=== PATIENT | male | born 1945 | race Caucasian/White ===

== ENCOUNTER 2018-11-24 01:39 | Outpatient (CLI) | payer MEDICARE ==
[2018-11-24 13:28] LABS: Hemoglobin 18.4 g/dL (14.0-18.0); Mean Corpuscular HGB CONC 31.7 g/dL (32.0-36.0); Mean Corpuscular Hemoglobin 31.5 pg (27.0-31.0); Mean Corpuscular Volume 99.5 fL (78.0-98.0); Mean Platelet Volume 8.2 fL (7.4-10.4); Platelet Count 204 thou/uL (130-400); RBC Distribution Width 12.9 % (11.5-14.5); Red Blood Cell (RBC) Count 5.82 mill/uL (4.70-6.10); White Blood Cell (WBC) Count 10.1 thou/uL (4.8-10.8)
[2018-11-24 13:46] LABS: Anion Gap 15 mmol/L (10-20); BUN (Urea Nitrogen) 37 mg/dL (8.4-25.7); Calc. Creatinine Clearance 0 mL/min (70-130); Calcium 10.1 mg/dL (7.8-10.44); Carbon Dioxide 25 mmol/L (23-31); Chloride 103 mmol/L (98-107); Estimated GFR-MDRD 31; Glucose 89 mg/dL (83-110); Potassium 5.6 mmol/L (3.5-5.1); Sodium 137 mmol/L (136-145)
[2018-11-24 13:49] LABS: Prothrombin Time 13.3 SEC (12.0-14.7)
[2018-11-24 13:50] LABS: PTT 34.6 SEC (22.9-36.1)
== END 2018-11-24 01:40 | disposition home or self-care (01) ==
LOC: LABBT 01:39
PROVIDERS: ATTEND Orthopaedic Surgery
DX: Z01.812 Encounter for preprocedural laboratory examination (principal); M17.11 Unilateral primary osteoarthritis, right knee
CPT/HCPCS: 80048; 85027; 85610; 85730; 86850; 86900; 86901; 87081

== ENCOUNTER 2018-11-24 12:00 | Inpatient (IN) | payer MEDICARE ==
[2018-11-24 12:28] VITALS: BMI 28.1
[2018-12-01] MEDS ORDERED: Fentanyl 100 MCG/2 ML VIAL ONE ×4 (12:28→16:45)
[2018-12-01] MEDS ORDERED: Midazolam HCl 2 mg/2 ml Vial ONE (12:28)
[2018-12-01] MEDS ORDERED: Bupivacaine HCl 0.5%/Epinephrine 1:200,000/PF 30 ml Vial ONE (12:49)
[2018-12-01] MEDS ORDERED: Sodium Chloride 0.9% 0 ML ONE (12:49)
[2018-12-01] MEDS ORDERED: Ketorolac Tromethamine 30 MG/ML VIAL ONE (12:49)
[2018-12-01] MEDS ORDERED: Neomycin-Polymyxin 1 ML AMP ONE (12:49)
[2018-12-01] MEDS ORDERED: Ropivacaine HCl/PF 250 ML in Premix Bag 1 BAG NERVE BLCK SCH (13:20)
[2018-12-01] MEDS ORDERED: Ondansetron PF 4 MG/2 ML Vial IVP PRN ×2 (13:20→15:28)
[2018-12-01] MEDS ORDERED: HYDROcodone/Acetaminophen 10/325 mg Tablet PO PRN (13:20)
[2018-12-01] MEDS ORDERED: Fentanyl 100 MCG/2 ML VIAL SLOW IVP PRN ×2 (13:20→15:28)
[2018-12-01] MEDS ORDERED: traMADol HCl 50 MG TAB PO PRN ×2 (13:20→15:28)
[2018-12-01] MEDS ORDERED: Promethazine HCl 25 MG/ML VIAL IM PRN ×2 (13:20→15:28)
[2018-12-01] MEDS ORDERED: Zolpidem Tartrate 5 MG TAB PO PRN ×2 (13:20→15:28)
[2018-12-01] MEDS ORDERED: Ropivacaine 0.5% HCl/PF (150 MG/30 ML VIAL) ONE ×2 (14:46→16:37)
[2018-12-01] MEDS ORDERED: Ropivacaine 0.2% HCl/PF (40 MG/20 ML VIAL) ONE (14:46)
[2018-12-01] MEDS ORDERED: Lidocaine 1% PF 5 ML VIAL ONE (15:18)
[2018-12-01] MEDS ORDERED: Ondansetron PF 4 MG/2 ML Vial ONE (15:18)
[2018-12-01] MEDS ORDERED: PROPOFOL 200 MG/20 ML VIAL ONE (15:18)
[2018-12-01] MEDS ORDERED: diphenhydrAMINE 25 MG CAP PO PRN (15:28)
[2018-12-01] MEDS ORDERED: Acetaminophen 325 MG TAB PO PRN (15:28)
--- NOTE | 2018-12-01 15:48 | RAD ---
RIGHT KNEE 2 VIEWS: HISTORY: Postop total knee. COMPARISON: None. FINDINGS: Satisfactory appearance of the right total knee arthroplasty and patellar surfacing. Expected postop erative gas and edema. IMPRESSION: Satisfactory postoperative appearance. POS: MARCELLE
[2018-12-01] MEDS: HYDROcodone/Acetaminophen 10/325 mg Tablet PO PRN ×2 (18:40→23:00)
[2018-12-01] MEDS: Dextrose 5 %-0.45 % NaCl 1,000 ML IV SCH (19:34)
[2018-12-01] MEDS: CEFAZOLIN 2 GM in Premix Bag 1 BAG IVPB SCH (19:52)
[2018-12-01] MEDS: traMADol HCl 50 MG TAB PO PRN (19:53)
[2018-12-01] MEDS: Senokot S 8.6-50 MG TAB PO SCH (20:03)
[2018-12-01] MEDS: Tamsulosin HCl 0.4 MG CAP PO SCH (20:03)
[2018-12-01] MEDS: Ferrous Gluconate 324 MG TAB PO SCH (20:03)
[2018-12-01] MEDS: Aspirin 81 mg Enteric Coated Tablet PO SCH (20:03)
[2018-12-01] MEDS: diphenhydrAMINE 25 MG CAP PO SCH (20:04)
--- NOTE | 2018-12-01 22:21 | OP ---
DATE OF PROCEDURE: 12/01/2018 OPERATION: Right total knee arthroplasty. PREOPERATIVE DIAGNOSIS: Right knee osteoarthritis. POSTOPERATIVE DIAGNOSIS: Right knee osteoarthritis. COMPLICATIONS: None. ESTIMATED BLOOD LOSS: 100 mL. ANESTHESIA: General. FORESTRY BIOLOGY SPECIALIST: Jorge Krishnan PA-C IMPLANTS: DJO total knee arthroplasty, size 8 femur, posterior stabilized, size 7 tibia with a 10 mm polyethylene and a 38 mm poly patella. INDICATIONS: Mr. Lemus is a 73-year-old male who has advanced severe osteoarthritis of the knee. He has been indicated for knee arthroplasty to restore function and relieve pain. Risks have been reviewed in detail. He elected to proceed with the operation. Risks include infection, pain, scarring, nerve or vascular injury, and others. DESCRIPTION OF PROCEDURE: Mr. Lemus was identified in the preoperative holding area. His correct extremity was marked. He was carried to the operating room and he was positioned supine. General anesthesia was induced. A multidisciplinary time-out was performed. The right lower extremity was prepped and draped in a sterile fashion. We began the procedure with anterior approach to the knee. We dissected down through the subcutaneous tissues to the patellar retinaculum. We incised the retinaculum and a medial parapatellar arthrotomy. We exposed the underlying knee joint. We excised the superior synovium as well as the anterior fat pad and performed a medial release. We then everted the patella. We resected 9 mm of patella bone. We then drilled for a patella button. We reconstituted the patella height with a trial. Next, we flexed the knee. We entered the intramedullary canal of the femur. We then made our distal femoral cut using a cutting block. We then placed our 4 in 1 cutting block after sizing it a size 8. We made anterior, posterior, and chamfer cuts. Finally, we made a box cut with appropriate guide. We removed the osteophytes. Next, we moved to the tibia. We resected 10 mm from the medial tibial plateau. This gave a leveled tibial cutting surface. At this point, we punched and drilled our tibia. We then trialed. We were satisfied with the 10 mm polyethylene. We removed the trial components. We thoroughly irrigated with copious lavage. We removed osteophytes and debris from the posterior aspect of the knee. At this point, we impacted our final components with cement. The knee was held in extension until fully hardened. At this point, we began closure with #2 Vicryl suture, 2-0 Vicryl suture, and grace for the skin. A sterile dressing was applied. Job ID: [id number]
[2018-12-01] MEDS: Ketorolac Tromethamine 30 MG/ML VIAL IM SCH (22:52)
[2018-12-01] MEDS: Ketorolac Tromethamine 30 MG/ML VIAL IVP SCH (22:52)
[2018-12-02] MEDS: Dextrose 5 %-0.45 % NaCl 1,000 ML IV SCH ×3 (02:04→21:05)
[2018-12-02] MEDS: HYDROcodone/Acetaminophen 10/325 mg Tablet PO PRN (03:36)
[2018-12-02] MEDS: CEFAZOLIN 2 GM in Premix Bag 1 BAG IVPB SCH (03:36)
[2018-12-02] MEDS: Ketorolac Tromethamine 30 MG/ML VIAL IVP SCH ×3 (06:02→21:06)
[2018-12-02] MEDS: Ketorolac Tromethamine 30 MG/ML VIAL IM SCH ×3 (06:03→21:06)
[2018-12-02 06:15] LABS: Hemoglobin 14.9 g/dL (14.0-18.0); Mean Corpuscular HGB CONC 32.5 g/dL (32.0-36.0); Mean Corpuscular Hemoglobin 32.3 pg (27.0-31.0); Mean Corpuscular Volume 99.2 fL (78.0-98.0); Mean Platelet Volume 8.6 fL (7.4-10.4); Platelet Count 176 thou/uL (130-400); RBC Distribution Width 12.8 % (11.5-14.5); Red Blood Cell (RBC) Count 4.62 mill/uL (4.70-6.10); White Blood Cell (WBC) Count 10.7 thou/uL (4.8-10.8)
[2018-12-02] MEDS ORDERED: Febuxostat [Uloric] 80 MG PO SCH (09:00)
[2018-12-02] MEDS: Aspirin 81 mg Enteric Coated Tablet PO SCH ×2 (09:07→20:55)
[2018-12-02] MEDS: Lisinopril/Hydrochlorothiazide 20/25 mg Tablet PO SCH (09:08)
[2018-12-02] MEDS: Ferrous Gluconate 324 MG TAB PO SCH ×2 (09:09→20:55)
[2018-12-02] MEDS: Multivitamin W/ Minerals 1 TAB PO SCH (09:09)
[2018-12-02] MEDS: Senokot S 8.6-50 MG TAB PO SCH ×2 (09:10→20:55)
--- NOTE | 2018-12-02 10:47 | PDOC.PN ---
- Subjective Encounter Start Date: 12/02/18 Encounter Start Time: 07:15 Subjective: didn't sleep well due to pain -: no sob or chest pain -: currently feels better, family at bedside - Objective MAR Reviewed: Yes Vital Signs & Weight: Vital Signs (12 hours) Temp Pulse Resp BP BP Pulse Ox 12/02/18 09:08 78 99/62 12/02/18 08:00 98.6 F 78 12 99/62 95 12/02/18 03:34 98.9 F 88 18 103/67 96 12/01/18 23:05 98.5 F 90 16 133/81 97 Weight Weight 185 lb I&O: 12/01/18 12/02/18 12/03/18 06:59 06:59 06:59 Intake Total 1800 Output Total 950 Balance 850 Result Diagrams: 12/02/18 05:11 Phys Exam - Physical Examination HEENT: PERRLA, moist MMs Neck: no JVD, supple Respiratory: no wheezing, no rales Cardiovascular: RRR, no significant murmur Gastrointestinal: soft, non-tender, positive bowel sounds Musculoskeletal: pulses present right knee in dressing, post op edema+ Neurological: non-focal, moves all 4 limbs Psychiatric: normal affect, A&O x 3 Dx/Plan (1) Status post total knee replacement, right Code(s): Z96.651 - PRESENCE OF RIGHT ARTIFICIAL KNEE JOINT Status: Acute (2) BPH (benign prostatic hyperplasia) Code(s): N40.0 - BENIGN PROSTATIC HYPERPLASIA WITHOUT LOWER URINRY TRACT SYMP Status: Chronic Qualifiers: Lower urinary tract symptom presence: symptoms absent Qualified Code(s): N40.0 - Benign prostatic hyperplasia without lower urinary tract symptoms (3) HTN (hypertension) Code(s): I10 - ESSENTIAL (PRIMARY) HYPERTENSION Status: Chronic Qualifiers: Hypertension type: essential hypertension Qualified Code(s): I10 - Essential (primary) hypertension (4) H/O: gout Code(s): Z87.39 - PERSONAL HISTORY OF DISEASES OF THE MS SYS AND CONN TISS Status: Chronic - Plan is on asp bid, iv fluid, fentanyl, norco, toradol prn, ropivacaine nr block -: continue lisinopril/hctz, flomax -: PT to mobilize per ortho adv -: dc plan per ortho adv -: hemostable. PCP is in [place] * . Review of Systems - Medications/Allergies Allergies/Adverse Reactions: Allergies Allergy/AdvReac Type Severity Reaction Status Date / Time morphine Allergy Hives Verified 12/01/18 20:14 Medications: Current Medications Acetaminophen (Tylenol) 650 mg PO Q4H PRN PRN Reason: Headache/Fever or Pain Hydrocodone Bitart/Acetaminophen ([place] 10/325) 1 tab PO Q4H PRN PRN Reason: Pain (1-3) Hydrocodone Bitart/Acetaminophen ([place] 10/325) 2 tab PO Q4H PRN PRN Reason: PAIN (4-6) Last Admin: 12/02/18 03:36 Dose: 2 tab Aspirin (Ecotrin) 81 mg PO BID [facility] Last Admin: 12/02/18 09:07 Dose: 81 mg Diphenhydramine HCl (Benadryl) 25 mg PO Q6H PRN PRN Reason: Itching Diphenhydramine HCl (Benadryl) 25 mg PO HS [facility] Last Admin: 12/01/18 20:04 Dose: Not Given Fentanyl (Sublimaze) 50 mcg SLOW IVP Q1H PRN PRN Reason: breakthrough pain Last Admin: 12/01/18 21:22 Dose: 50 mcg Ferrous Gluconate (Fergon) 324 mg PO BID [facility] Last Admin: 12/02/18 09:09 Dose: Not Given Lisinopril/HCTZ (Prinizide 20-25) 1 tab PO DAILY [facility] Last Admin: 12/02/18 09:08 Dose: Not Given Ropivacaine 250 ml/ Device 250 mls @ 10 mls/hr NERVE BLCK INF [facility] Dextrose/Sodium Chloride (D5 1/2 Ns) 1,000 mls @ 100 mls/hr IV .Q10H [facility] Last Admin: 12/02/18 02:04 Dose: Not Given Iron/Minerals/Multivitamins (Theragran M) 1 tab PO DAILY [facility] Last Admin: 12/02/18 09:09 Dose: Not Given Ketorolac Tromethamine (Toradol) 15 mg IVP Q8HR [facility] Stop: 12/03/18 22:01 Last Admin: 12/02/18 06:02 Dose: 15 mg Ketorolac Tromethamine (Toradol) 15 mg IM Q8HR [facility] Stop: 12/03/18 22:01 Last Admin: 12/02/18 06:03 Dose: Not Given Ondansetron HCl (Zofran) 4 mg IVP Q6H PRN PRN Reason: Nausea/Vomiting Last Admin: 12/02/18 06:39 Dose: 4 mg Ondansetron HCl (Zofran) 4 mg IVP Q6H PRN PRN Reason: Nausea/Vomiting Febuxostat [Uloric] (80 Mg) 0 each PO DAILY [facility] Promethazine HCl (Phenergan) 12.5 mg IM Q4H PRN PRN Reason: Nausea Last Admin: 12/02/18 08:59 Dose: 12.5 mg Promethazine HCl (Phenergan) 12.5 mg IM Q4H PRN PRN Reason: Nausea/Vomiting Senna/Docusate Sodium (Senokot S) 2 tab PO BID [facility] Last Admin: 12/02/18 09:10 Dose: Not Given Sodium Chloride (Flush - Normal Saline) 10 ml IVF PRN PRN PRN Reason: Saline Flush Tamsulosin HCl (Flomax) 0.4 mg PO HS [facility] Last Admin: 12/01/18 20:03 Dose: 0.4 mg Tramadol HCl (Ultram) 50 mg PO Q6H PRN PRN Reason: Mild Pain (1-3) Tramadol HCl (Ultram) 100 mg PO Q6H PRN PRN Reason: Moderate Pain 4-6 Last Admin: 12/01/18 19:53 Dose: 100 mg Zolpidem Tartrate (Ambien) 5 mg PO HSPRN PRN PRN Reason: Insomnia
--- NOTE | 2018-12-02 12:36 | PRG ---
DATE OF SERVICE: 12/02/2018 SUBJECTIVE: Jaspreet is a 73-year-old white male, who is postop day #1 from a right total knee arthroplasty by Dr. Gurrola. He has complaints of nausea this morning, but he did relatively well in terms of pain. OBJECTIVE: VITAL SIGNS: Temperature 98.6, pulse 78, blood pressure is 99/62, respiratory rate is 12, O2 saturation on room air is 95%. GENERAL: He is alert and oriented to person, place, time, situation. Grossly nonfocal and responsive to examiner. MUSCULOSKELETAL/EXTREMITIES: His dressing is clean and dry. He is neurovascularly intact in the involved extremity. There is no pitting edema. LABORATORY DATA: Hemoglobin and hematocrit are 14.9 and 45.8. IMPRESSION: A 73-year-old white male, postop day #1, right total knee arthroplasty, doing well. PLAN: Continue current care. Probable discharge tomorrow. Follow. Nausea, Zofran as needed. Job ID: [id number]
[2018-12-02] MEDS: diphenhydrAMINE 25 MG CAP PO SCH (20:55)
[2018-12-02] MEDS: Tamsulosin HCl 0.4 MG CAP PO SCH (20:55)
[2018-12-03] MEDS: Ketorolac Tromethamine 30 MG/ML VIAL IM SCH (05:05)
[2018-12-03] MEDS: Ketorolac Tromethamine 30 MG/ML VIAL IVP SCH (05:05)
[2018-12-03 05:50] LABS: Hemoglobin 13.5 g/dL (14.0-18.0); Mean Corpuscular HGB CONC 32.1 g/dL (32.0-36.0); Mean Corpuscular Hemoglobin 31.8 pg (27.0-31.0); Mean Corpuscular Volume 99.1 fL (78.0-98.0); Mean Platelet Volume 8.7 fL (7.4-10.4); Platelet Count 160 thou/uL (130-400); RBC Distribution Width 12.7 % (11.5-14.5); Red Blood Cell (RBC) Count 4.25 mill/uL (4.70-6.10); White Blood Cell (WBC) Count 11.3 thou/uL (4.8-10.8)
[2018-12-03] MEDS: Senokot S 8.6-50 MG TAB PO SCH (08:52)
[2018-12-03] MEDS: Ferrous Gluconate 324 MG TAB PO SCH (08:52)
[2018-12-03] MEDS: Multivitamin W/ Minerals 1 TAB PO SCH (08:52)
[2018-12-03] MEDS: Aspirin 81 mg Enteric Coated Tablet PO SCH (08:53)
[2018-12-03] MEDS: traMADol HCl 50 MG TAB PO PRN (08:53)
[2018-12-03] MEDS: Lisinopril/Hydrochlorothiazide 20/25 mg Tablet PO SCH (08:53)
[2018-12-03] MEDS: Dextrose 5 %-0.45 % NaCl 1,000 ML IV SCH (08:58)
[2018-12-03 11:27] VITALS: BP 127/77; TEMP 99.3
--- NOTE | 2018-12-03 12:31 | PDOC.PN ---
- Subjective Encounter Start Date: 12/03/18 Encounter Start Time: 09:30 Subjective: no sob, feels better - Objective MAR Reviewed: Yes Vital Signs & Weight: Vital Signs (12 hours) Temp Pulse Resp BP BP Pulse Ox 12/03/18 11:26 99.3 F 93 16 127/77 96 12/03/18 09:07 94 L 12/03/18 08:53 73 122/80 12/03/18 08:05 99.1 F 73 18 122/80 94 L 12/03/18 04:00 99.5 F 96 20 115/73 93 L Weight Admit Weight 185 lb Weight 185 lb I&O: 12/02/18 12/03/18 12/04/18 06:59 06:59 06:59 Intake Total 1800 960 Output Total 950 Balance 850 960 Result Diagrams: 12/03/18 04:52 Phys Exam - Physical Examination HEENT: PERRLA, moist MMs Neck: no JVD, supple Respiratory: no wheezing, no rales Cardiovascular: RRR, no significant murmur Gastrointestinal: soft, non-tender, positive bowel sounds Musculoskeletal: pulses present Neurological: non-focal, moves all 4 limbs Psychiatric: normal affect, A&O x 3 Dx/Plan (1) Status post total knee replacement, right Code(s): Z96.651 - PRESENCE OF RIGHT ARTIFICIAL KNEE JOINT Status: Acute (2) BPH (benign prostatic hyperplasia) Code(s): N40.0 - BENIGN PROSTATIC HYPERPLASIA WITHOUT LOWER URINRY TRACT SYMP Status: Chronic Qualifiers: Lower urinary tract symptom presence: symptoms absent Qualified Code(s): N40.0 - Benign prostatic hyperplasia without lower urinary tract symptoms (3) HTN (hypertension) Code(s): I10 - ESSENTIAL (PRIMARY) HYPERTENSION Status: Chronic Qualifiers: Hypertension type: essential hypertension Qualified Code(s): I10 - Essential (primary) hypertension (4) H/O: gout Code(s): Z87.39 - PERSONAL HISTORY OF DISEASES OF THE MS SYS AND CONN TISS Status: Chronic - Plan hemostable -: is being dc'd home -: to f/u with PCP in 1 week -: continue asp bid, lisinopril/hctz and flomax * .
--- NOTE | 2018-12-04 21:12 | DIS ---
DATE OF ADMISSION: 12/01/2018 DATE OF DISCHARGE: 12/03/2018 DISCHARGE DISPOSITION: Home. PRIMARY DISCHARGE DIAGNOSIS: The patient is status post right total knee replacement. SECONDARY DISCHARGE DIAGNOSES: Hypertension, history of gout, benign prostatic hypertrophy. PROCEDURES DONE DURING HOSPITALIZATION: The patient has had a right total knee replacement done by Dr. Gurrola on 12/01/2018. Hemoglobin and hematocrit 13 and 42, platelet count is 160. DISCHARGE MEDICATIONS: 1. Uloric 80 mg p.o. daily. 2. [place] p.r.n. for pain. 3. Lisinopril with hydrochlorothiazide 20/25 mg p.o. daily. 4. Flomax 0.4 mg p.o. at bedtime. 5. Ultram p.r.n. for pain. 6. Aspirin 81 mg p.o. twice daily. ALLERGIES: TO MORPHINE. DISCHARGE PLAN: The patient to follow up with Dr. Gurrola as advised. BRIEF COURSE DURING HOSPITALIZATION: The patient initially got admitted electively on the for a right total knee arthroplasty. Postop, [facility] physicians were consulted for comanagement of medical issues. He has remained hemodynamically stable postop. The patient has been ambulating with physical therapy postop. He needs to follow up with Dr. Gurrola as advised and primary care physician in one week. All his home medications have been continued, and the patient needs to continue aspirin twice daily for DVT prophylaxis post-knee surgery. Please see a [id number] documentation for the day of discharge on [email or web address]. Job ID: [id number]
== END 2018-12-03 13:25 | disposition home or self-care (01) | DRG 470 ==
LOC: SURG A 12-01 10:48 → EDSTATUS 12-01 12:00 → SJJU 12-01 17:42
PROVIDERS: ADMIT Orthopaedic Surgery; ATTEND Orthopaedic Surgery
PROC: 0SRC0J9 Replacement of Right Knee Joint with Synthetic Substitute, Cemented, Open Approach (ICD-10-PCS; principal; 2018-12-01)
DX: M17.11 Unilateral primary osteoarthritis, right knee (principal); N40.0 Benign prostatic hyperplasia without lower urinary tract symptoms; I10 Essential (primary) hypertension; Z87.39 Personal history of other diseases of the musculoskeletal system and connective tissue
CPT/HCPCS: 36415; 85027; 87070; 87205; 88305; 89060; J0670; J1885; J2001; J2250; J2405; J2550; J2704; J2795; J3010; Q0163

== ENCOUNTER 2018-12-07 14:43 | Emergency (ER) | payer MEDICARE ==
[2018-12-07] MEDS ORDERED: Lidocaine Viscous Sol 2% 15 ml UD Cup ONE (15:19)
[2018-12-07] MEDS ORDERED: Metoclopramide HCl 10 MG/2 ML VIAL ONE (15:19)
[2018-12-07] MEDS ORDERED: Pantoprazole 40 MG VIAL ONE (15:19)
[2018-12-07] MEDS ORDERED: Mag-Al Plus 1200 MG/1200 MG/120 MG/30 ML UDCUP ONE (15:19)
[2018-12-07 15:35] LABS: #Basophils 0.1 thou/uL (0.0-0.2); #Eosinphils 0.2 thou/uL (0.0-0.7); #Lymphocytes 1.2 thou/uL (1.20-3.40); #Monocytes 0.9 thou/uL (0.11-0.59); #Neutrophils 6.1 thou/uL (1.40-6.50); %Eosinophils 2.5 % (0.0-10.0); %Monocytes 10.8 % (0.0-10.0); %Neutrophils 71.7 % (42.0-75.0); Hemoglobin 14.7 g/dL (14.0-18.0); Mean Corpuscular HGB CONC 34.3 g/dL (32.0-36.0); Mean Corpuscular Hemoglobin 32.8 pg (27.0-31.0); Mean Corpuscular Volume 95.5 fL (78.0-98.0); Mean Platelet Volume 7.6 fL (7.4-10.4); Platelet Count 224 thou/uL (130-400); RBC Distribution Width 12.9 % (11.5-14.5); Red Blood Cell (RBC) Count 4.48 mill/uL (4.70-6.10); White Blood Cell (WBC) Count 8.5 thou/uL (4.8-10.8)
[2018-12-07 15:51] LABS: ALT (SGPT) 44 U/L (8-55); AST (SGOT) 51 U/L (5-34); Albumin 3.6 g/dL (3.4-4.8); Alkaline Phosphatase 137 U/L (40-150); Anion Gap 16 mmol/L (10-20); BUN (Urea Nitrogen) 34 mg/dL (8.4-25.7); Bilirubin, Total 1.2 mg/dL (0.2-1.2); Calc. Creatinine Clearance 0 mL/min (70-130); Calcium 10.9 mg/dL (7.8-10.44); Carbon Dioxide 28 mmol/L (23-31); Chloride 98 mmol/L (98-107); Estimated GFR-MDRD 34; Globulin 3.2 g/dL (2.4-3.5); Glucose 108 mg/dL (83-110); Potassium 4.6 mmol/L (3.5-5.1); Protein, Total 6.8 g/dL (5.8-8.1); Sodium 137 mmol/L (136-145)
--- NOTE | 2018-12-07 16:26 | RAD ---
RADIOGRAPH CHEST 1 VIEW RADIOGRAPH ABDOMEN 2 VIEWS: Date: 12-07-18 HISTORY: 73-year-old male with constipation and indigestion. FINDINGS: Ectasia and tortuosity of the thoracic aorta. No cardiomegaly. No pulmonary edema or consolidation. N o pneumothorax or pneumoperitoneum. S-shaped scoliosis of the lumbar spine and compensatory levoscoli osis of lower thoracic spine. Multilevel high grade degenerative disc disease throughout the lumbar s pine. Pedicle screws at lower levels. Left hip replacement metallic hardware. Large amount of gas thr oughout nondilated loops of small bowel and colon. There are a few air fluid levels but no differenti al air fluid levels. No small bowel dilatation. No evidence of organomegaly. IMPRESSION: 1. Nonobstructive bowel gas pattern. 2. Large amount of small bowel gas. 3. S-shaped scoliosis of spine, with primary lumbar dextroscoliosis with severe lumbar spondylosis. 4. Status post total left hip replacement replacement arthroplasty. 5. No acute cardiopulmonary findings. [place]OS[place] POS: MARCELLE
== END 2018-12-07 17:05 | disposition home or self-care (01) ==
LOC: SCSER 14:43
DX: K30 Functional dyspepsia (principal); K59.00 Constipation, unspecified; R06.6 Hiccough; M10.9 Gout, unspecified; I10 Essential (primary) hypertension; Z79.899 Other long term (current) drug therapy
CPT/HCPCS: 74022; 80053; 84484; 85025; 93005; 96365; 96375; C9113; J2765

== ENCOUNTER 2019-10-23 06:56 | Day surgery (SDC) | payer MEDICARE ==
[2019-10-22 10:08] VITALS: BMI 26.6
[2019-10-23] MEDS ORDERED: Midazolam HCl 2 mg/2 ml Vial ONE (07:39)
[2019-10-23] MEDS ORDERED: Fentanyl 100 MCG/2 ML VIAL ONE ×2 (07:39→11:00)
[2019-10-23] MEDS ORDERED: Bupivacaine HCl 0.5%/Epinephrine 1:200,000/PF 30 ml Vial ONE (09:49)
[2019-10-23] MEDS ORDERED: PROPOFOL 200 MG/20 ML VIAL ONE (09:49)
[2019-10-23] MEDS ORDERED: Ondansetron PF 4 MG/2 ML Vial ONE (09:49)
[2019-10-23] MEDS ORDERED: HYDROcodone/Acetaminophen 5/325 mg Tablet ONE ×2 (12:17)
--- NOTE | 2019-10-23 13:54 | OP ---
DATE OF PROCEDURE: 10/23/2019 PROCEDURE PERFORMED: Open reduction and internal fixation of right patella fracture. PREOPERATIVE DIAGNOSIS: Right patella fracture, periprosthetic. POSTOPERATIVE DIAGNOSIS: Right patella fracture, periprosthetic. COMPLICATIONS: None. ESTIMATED BLOOD LOSS: Minimal. RADIO ENGINEERING TEACHER: Jorge Krishnan PA-C IMPLANTS: Ethibond suture was utilized. INDICATIONS: Mr. Lemus is a 74-year-old male, who has a history of total knee arthroplasty. He injured his knee while climbing a gate. He fractured his patella. He was indicated for open reduction and repair of the patella with partial patellectomy. The goal is to restore the extensor mechanism and improve strength of the knee. DESCRIPTION OF PROCEDURE: Mr. Lemus was identified in the preoperative holding area. His correct extremity was marked. He was carried to the operating room. He was positioned supine. General anesthesia was induced. A multidisciplinary time-out was performed. The right lower extremity was prepped and draped in sterile fashion. We began the procedure with an anterior approach to the knee. We dissected down through the subcutaneous tissues to the patellar retinaculum. The patella fracture was evident. There was clear disruption of the medial and lateral retinaculum as well. At this point, we cleared the bony edges of the patella. We excised some of the inferior bone. We prepped the bone with a curette. We then passed a #5 Ethibond suture through the patellar tendon inferiorly and superiorly. We then drilled two holes in the patella proximally. We passed our Ethibond suture through these holes. The patella component itself was intact. It was not loosened. We did remove some cement with a rongeur. At this point, we tied our sutures that were passed through the patella. Then, we oversewed our retinacular repair. We thoroughly irrigated and closed the superficial tissues appropriately in layers. A sterile dressing was applied. The patient was taken to the recovery room at this point in good condition. Job ID: [id number]
== END 2019-10-23 13:50 | disposition home or self-care (01) ==
LOC: SDC 06:56
PROVIDERS: ATTEND Orthopaedic Surgery
PROC: 0QBD0ZZ Excision of Right Patella, Open Approach (ICD-10-PCS; principal; 2019-10-23)
PROC: 0QSD04Z Reposition Right Patella with Internal Fixation Device, Open Approach (ICD-10-PCS; 2019-10-23)
DX: S82.031A Displaced transverse fracture of right patella, initial encounter for closed fracture (principal); M97.11XA Periprosthetic fracture around internal prosthetic right knee joint, initial encounter; M96.69 Fracture of other bone following insertion of orthopedic implant, joint prosthesis, or bone plate; Z79.899 Other long term (current) drug therapy; Z88.5 Allergy status to narcotic agent; W17.89XA Other fall from one level to another, initial encounter
CPT/HCPCS: J0670; J0690; J2250; J2405; J2704; J3010